=== PATIENT | male | born 1955 | race Caucasian/White ===

== ENCOUNTER 2018-07-25 09:16 | Outpatient (CLI) | payer OTHER ==
--- NOTE | 2018-07-25 15:12 | MRI ---
MRI LUMBAR SPINE WITH AND WITHOUT IV CONTRAST: Date: 07/25/18 INDICATION: 63-year-old male with history of back surgery, chronic back pain, and extreme pain for the last 2 day s with difficulty walking. TECHNIQUE: Multiplanar, multisequence MR images were obtained of the lumbar spine with and without IV contrast. The patient received 20 mL of MultiHance for the examination. No radiographic or MR comparisons are a vailable. Five lumbar-type vertebral bodies are assumed for the purposes of this exam. FINDINGS: There is postsurgical change of a left hemilaminectomy at L3-4. There is loss of normal disc space height at L5-S1 through L3-4. At L5-S1, there is a broad based bulge with mild facet joint degenerative change and loss of disc spa ce height inducing moderate bilateral neural foraminal narrowing. At L4-5, there is a broad based bulge with ligamentum flavum hypertrophy and facet hypertrophy induci ng mild central canal narrowing. There is a superimposed left paracentral cephalad extending disc ext rusion measuring 1.6 x 0.8 cm on image 12 of series 2. The lesion does cause moderate to severe left lateral recess narrowing at the left aspect of the L4 vertebral level with probable impingement of th e traversing left L4 nerve root prior to exiting at L4-5. The broad based bulge and facet hypertrophy at L4-5 induces mild bilateral neural foraminal narrowing. At L3-4, there is a broad based disc bulge with a superimposed right foraminal disc protrusion causin g moderate right neural foraminal narrowing. The broad based bulge and facet hypertrophy at this leve l induces mild central canal narrowing. At L2-3, there is moderate facet joint degenerative change and mild broad based bulge, but no appreci able central canal or neural foraminal narrowing. At L1-L2, there is no appreciable central canal or neural foraminal narrowing. At T12-L1, there is no appreciable central canal or neural foraminal narrowing. The postcontrast images demonstrate no abnormal region of enhancement. IMPRESSION: 1. Left cephalad extending paracentral disc extrusion at L4-5 induces severe subarticular lateral re cess narrowing at the L4 vertebral level with probable impingement of the traversing left L4 nerve ro ot. There is also mild central canal narrowing at this level with mild bilateral neural foraminal wendi rowing. 2. Moderate right neural foraminal narrowing at L3-4 due to broad based bulge and superimposed right foraminal disc protrusion. There is mild central canal narrowing at L3-4. 3. Moderate bilateral neural foraminal narrowing at L5-S1. 4. Other findings as above. POS: PATRIA
== END 2018-07-25 09:17 | disposition home or self-care (01) ==
LOC: SCSMRI 09:16
PROVIDERS: ATTEND Neurological Surgery
DX: M51.16 Intervertebral disc disorders with radiculopathy, lumbar region (principal); M48.061 Spinal stenosis, lumbar region without neurogenic claudication; M51.86 Other intervertebral disc disorders, lumbar region; M48.07 Spinal stenosis, lumbosacral region; M47.817 Spondylosis without myelopathy or radiculopathy, lumbosacral region; M51.87 Other intervertebral disc disorders, lumbosacral region; M46.06 Spinal enthesopathy, lumbar region; Z98.890 Other specified postprocedural states
CPT/HCPCS: 72158; 82565

== ENCOUNTER 2018-07-30 06:26 | Day surgery (SDC) | payer OTHER ==
[2018-07-27 10:26] VITALS: BMI 30.8
[2018-07-30] MEDS ORDERED: CEFAZOLIN 2 GM/50 ML BAG ONE ×2 (06:43→07:21)
[2018-07-30] MEDS ORDERED: Fentanyl 100 MCG/2 ML VIAL ONE ×3 (06:50→09:55)
[2018-07-30] MEDS ORDERED: Midazolam HCl 2 mg/2 ml Vial ONE (07:24)
[2018-07-30 07:35] LABS: Hemoglobin 16.1 g/dL (14.0-18.0); Mean Corpuscular HGB CONC 33.9 g/dL (32.0-36.0); Mean Corpuscular Hemoglobin 31.1 pg (27.0-31.0); Mean Corpuscular Volume 91.8 fL (78.0-98.0); Mean Platelet Volume 7.2 fL (7.4-10.4); Platelet Count 203 thou/uL (130-400); RBC Distribution Width 11.3 % (11.5-14.5); Red Blood Cell (RBC) Count 5.17 mill/uL (4.70-6.10); White Blood Cell (WBC) Count 7.2 thou/uL (4.8-10.8)
[2018-07-30 07:55] LABS: Anion Gap 15 mmol/L (10-20); BUN (Urea Nitrogen) 24 mg/dL (8.4-25.7); Calc. Creatinine Clearance 108 mL/min (70-130); Calcium 9.6 mg/dL (7.8-10.44); Carbon Dioxide 23 mmol/L (23-31); Chloride 106 mmol/L (98-107); Estimated GFR-MDRD 69; Glucose 113 mg/dL (80-115); Potassium 4.3 mmol/L (3.5-5.1); Sodium 140 mmol/L (136-145)
[2018-07-30] MEDS ORDERED: ePHEDrine/0.9% NaCl/PF SYRINGE 50 mg/10 ml ONE ×2 (08:53→17:00)
[2018-07-30] MEDS ORDERED: hydrALAZINE 20 MG/ML VIAL ONE (09:50)
[2018-07-30] MEDS ORDERED: HYDROcodone/Acetaminophen 5/325 mg Tablet ONE (11:30)
--- NOTE | 2018-07-30 11:59 | OP ---
DATE OF PROCEDURE: 07/30/2018 LEASE ADMINISTRATION SUPERVISOR: Lydia Spangler PA-C PROCEDURE PERFORMED: Left L4-L5 microdiskectomy. DESCRIPTION OF PROCEDURE: The patient was brought to the operating room and intubated. He was rolled in a prone position on gel-filled chest rolls. An incision was made exposing the L4-L5 on the left and the level was confirmed by x-ray. We performed a left L4-L5 hemilaminectomy, extended it superiorly identifying the left L5 nerve root. Beneath this was a disk herniation, which had extended superiorly as anticipated and using operative microscope and microdissection techniques, the disk was removed in multiple fragments. A complete decompression was secured. Gelfoam was used for hemostasis. The wound was extensively irrigated. Vancomycin powder was applied and the wound was closed in anatomic layers. Job ID: [id number]
[2018-07-30] MEDS ORDERED: Morphine 2 MG/ML SYRINGE ONE (12:00)
[2018-07-30] MEDS ORDERED: Lidocaine 1% PF 5 ML VIAL ONE (17:00)
[2018-07-30] MEDS ORDERED: PROPOFOL 200 MG/20 ML VIAL ONE (17:00)
[2018-07-30] MEDS ORDERED: Ondansetron PF 4 MG/2 ML Vial ONE (17:00)
[2018-07-30] MEDS ORDERED: Dexamethasone 20 MG/5 ML VIAL ONE (17:00)
[2018-07-30] MEDS ORDERED: Rocuronium Bromide 10 MG/ML (10ML VIAL) ONE (17:00)
[2018-07-30] MEDS ORDERED: Glycopyrrolate 0.2 MG/ML 5 ML SYRINGE ONE (17:00)
--- NOTE | 2018-08-03 20:15 | EKG ---
Test Reason : PREOP Blood Pressure : / mmHG Vent. Rate : 059 BPM Atrial Rate : 059 BPM P-R Int : 160 ms QRS Dur : 084 ms QT Int : 428 ms P-R-T Axes : 018 -55 058 degrees QTc Int : 423 ms Sinus bradycardia with Premature atrial complexes Left anterior fascicular block Moderate voltage criteria for LVH, may be normal variant Abnormal ECG When compared with ECG of 05-APR-2016 20:47, Premature atrial complexes are now Present Confirmed by Benjamin FERRARI ([id number]) on 08/03/2018 8:15:08 PM Referred By: SHAWN Confirmed By:Benjamin FERRARI
== END 2018-07-30 12:00 | disposition home or self-care (01) ==
LOC: SDC 06:26
PROVIDERS: ATTEND Neurological Surgery
PROC: 0SB20ZZ Excision of Lumbar Vertebral Disc, Open Approach (ICD-10-PCS; principal; 2018-07-30)
DX: M54.16 Radiculopathy, lumbar region (principal); I10 Essential (primary) hypertension; Z79.52 Long term (current) use of systemic steroids; Z98.890 Other specified postprocedural states
CPT/HCPCS: 36415; 76000; 80048; 85027; 90471; 90686; 93005; 93010; 96374; G0008; J0360; J1100; J2001; J2250; J2270; J2405; J2704; J3010; J3370

== ENCOUNTER 2022-01-24 08:35 | Outpatient (CLI) | payer OTHER ==
[2022-01-24] MEDS ORDERED: Magnevist 469MG/ML 20 ML VIAL ONE (15:56)
== END 2022-01-24 08:36 | disposition home or self-care (01) ==
LOC: TBSIIMAG 08:35
PROVIDERS: ATTEND Physician Assistant
DX: M51.16 Intervertebral disc disorders with radiculopathy, lumbar region (principal); M48.061 Spinal stenosis, lumbar region without neurogenic claudication
CPT/HCPCS: 72158; A9579

== ENCOUNTER 2022-02-09 10:28 | Outpatient (CLI) | payer OTHER ==
[2022-02-09 11:51] LABS: Hemoglobin 14.2 g/dL (13.5-17.5); Mean Corpuscular HGB CONC 34.1 g/dL (32.0-36.0); Mean Corpuscular Hemoglobin 31.6 pg (27.0-33.0); Mean Corpuscular Volume 92.7 fl (81.2-95.1); Mean Platelet Volume 9.9 fl (7.4-10.4); Platelet Count 193 10x3/uL (150-450); RBC Distribution Width 12.1 % (11.5-14.5); Red Blood Cell (RBC) Count 4.49 10x6/uL (4.32-5.72); White Blood Cell (WBC) Count 4.8 10x3/uL (3.5-10.5)
[2022-02-09 12:01] LABS: Anion Gap 14 mmol/L (10-20); BUN (Urea Nitrogen) 16 mg/dL (8.4-25.7); Calc. Creatinine Clearance 0 mL/min (70-130); Calcium 9.6 mg/dL (7.8-10.44); Carbon Dioxide 23 mmol/L (23-31); Chloride 109 mmol/L (98-107); Estimated GFR 87; Glucose 108 mg/dL (80-115); Potassium 4.8 mmol/L (3.5-5.1); Sodium 141 mmol/L (136-145)
== END 2022-02-09 10:29 | disposition home or self-care (01) ==
LOC: LABBT 10:28
PROVIDERS: ATTEND Neurological Surgery
DX: Z01.818 Encounter for other preprocedural examination (principal); Z20.822 Contact with and (suspected) exposure to COVID-19
CPT/HCPCS: 80048; 85027; 87811; 93005; 93010

== ENCOUNTER 2022-02-14 07:46 | Day surgery (SDC) | payer OTHER ==
[2022-02-11 09:50] VITALS: BMI 33.0
[2022-02-14] MEDS ORDERED: fentaNYL Citrate/PF 100 MCG/2 ML SYRINGE ONE ×2 (08:59→11:01)
[2022-02-14] MEDS ORDERED: Rocuronium Bromide 10 MG/ML (10ML VIAL) ONE (11:18)
[2022-02-14] MEDS ORDERED: Lidocaine 1% PF 5 ML VIAL ONE (11:18)
[2022-02-14] MEDS ORDERED: Dexamethasone 20 MG/5 ML VIAL ONE (11:18)
[2022-02-14] MEDS ORDERED: ePHEDrine 50 MG/ML VIAL ONE (11:18)
[2022-02-14] MEDS ORDERED: Ondansetron PF 4 MG/2 ML Vial ONE (11:18)
[2022-02-14] MEDS ORDERED: PROPOFOL 200 MG/20 ML VIAL ONE (11:18)
[2022-02-14] MEDS ORDERED: Sodium Chloride 0.9% 100 ML ONE ×2 (11:21→15:31)
[2022-02-14] MEDS ORDERED: CEFAZOLIN 2 GM VIAL ONE ×2 (11:21→15:31)
[2022-02-14] MEDS ORDERED: HYDROmorphone 2 MG/ML VIAL ONE (12:33)
[2022-02-14] MEDS ORDERED: SUGAMMADEX SODIUM 200 MG/2 ML VIAL ONE ×2 (12:33→12:50)
[2022-02-14] MEDS ORDERED: Fentanyl 100 MCG/2 ML VIAL ONE (13:08)
[2022-02-14] MEDS ORDERED: Tamsulosin HCl 0.4 MG CAP ONE (13:33)
[2022-02-14] MEDS ORDERED: HYDROcodone/Acetaminophen 5/325 mg Tablet ONE (15:40)
== END 2022-02-14 16:27 | disposition home or self-care (01) ==
LOC: SDC 07:46
PROVIDERS: ATTEND Neurological Surgery
PROC: 0SG00AJ Fusion of Lumbar Vertebral Joint with Interbody Fusion Device, Posterior Approach, Anterior Column, Open Approach (ICD-10-PCS; principal; 2022-02-14)
DX: M51.26 Other intervertebral disc displacement, lumbar region (principal); M48.061 Spinal stenosis, lumbar region without neurogenic claudication; Z79.84 Long term (current) use of oral hypoglycemic drugs; Z79.899 Other long term (current) drug therapy
CPT/HCPCS: 20930; 20936; 22633; 22840; 22853; 76000; C1713 ×2; C1768; C1776; J0690; J1100; J1170; J2405; J2704; J3010; J3370; J3490

== ENCOUNTER 2022-03-01 12:59 | Outpatient (CLI) | payer OTHER | END 2022-03-01 13:00 | disposition home or self-care (01) | LOC: TBSIIMAG 12:59 | PROVIDERS: ATTEND Neurological Surgery | DX: M48.062 Spinal stenosis, lumbar region with neurogenic claudication (principal); Z98.890 Other specified postprocedural states | CPT/HCPCS: 72100 ==